=== PATIENT | female | born 2000 | race Caucasian/White ===

== ENCOUNTER 2024-07-05 14:57 | Emergency (ER) | payer OTHER | END 2024-07-05 15:27 | disposition home or self-care (01) | LOC: VM.ED 14:57 | DX: S30.1XXA Contusion of abdominal wall, initial encounter (principal); W29.3XXA Contact with powered garden and outdoor hand tools and machinery, initial encounter; Y93.89 Activity, other specified; Y99.0 Civilian activity done for income or pay | CPT/HCPCS: 99283 ==